=== PATIENT | male | born 1985 | race Caucasian/White ===

== ENCOUNTER 2019-10-05 18:39 | Emergency (ER) | payer OTHER, MEDICAID ==
[~2019-10-05] VITALS: Ht 190.5 cm; Wt 108.9 kg
[2019-10-05 19:03] VITALS: BP_SYST 128
--- NOTE | 2019-10-05 19:09 | NUR ---
Patient to ER bed h2 to gown for evaluation. Side rails up. Report given to FABIAN Styles.
--- NOTE | 2019-10-05 19:11 | NUR ---
Pt AAOx4 escorted into ED in handcuffs by Officer Patty for medical clearance prior to booking. Per officer, pt was arrested at traffic stop. Denies pain at this time. No other injuries/complaints per pt/noted. Will continue to monitor.
--- NOTE | 2019-10-05 19:12 | NUR ---
ER Dr. Sierra at bedside examining patient.
--- NOTE | 2019-10-05 19:19 | NUR ---
Written and verbal consent obtained from patient for blood alcohol, name and verified by patient. Disinfected patient's skin with iodine that did not contain alcohol or other volatile organic compound. Collected the blood from the subject named by venipuncture, in the presence of Officer Patty. Used a sterile, dry hypodermic needle and dry vacuum blood collection. Two dry vacuum blood collection was supplied by the officer named above. Withdrew a specimen of blood from right arm of the subject named above. Inverted both blood tube several times to ensure that the preservative and anticoagulant were thoroughly mixed in the blood specimen. I initialed both blood tube label for identification. The labeled blood tubes was handed directly to the Officer named above. The blood tubes stopper remained in place while I had possession of the blood tubes. The Officer placed tubes into envelope and sealed it in my presence. Envelope initialed by myself and Officer named above. Patient tolerated well, bandage applied, and bleeding controlled.
[2019-10-05 19:29] VITALS: BP_SYST 128
--- NOTE | 2019-10-05 19:29 | NUR ---
Patient given written and verbal discharge instructions and verbalizes understanding. ER MD Sierra discussed with patient the results and treatment provided. Patient in stable condition. ID arm band removed. No Rx given. Patient educated on pain management and to follow up with PMD. Pain Scale 0. Opportunity for questions provided and answered.
== END 2019-10-05 19:29 ==
LOC: SED 18:39
DX: Z02.89 Encounter for other administrative examinations (principal); F12.90 Cannabis use, unspecified, uncomplicated; F10.10 Alcohol abuse, uncomplicated
CPT/HCPCS: 99283